=== PATIENT | female | born 1955 | race Hispanic/Latino ===

== ENCOUNTER 2022-04-06 14:47 | Inpatient (IN) | payer MEDICARE, OTHER ==
--- NOTE | 2022-04-07 09:18 | History and Physical Report ---
GP History & Physical - History of Present Illness Date of admission: 04/07/22 Date of Examination: 04/07/22 Reason for Admission: Danger to self History of Present Illness: PAST PSYCHIATRIC HISTORY: Diagnoses:Schizophrenia Suicide attempts or Self-harm behavior: Denies Prior psychiatric hospitalizations: Yes Substance Abuse history: Denies Previous psychiatric medications tried: Risperidone, Trazadone Outpatient treatment:Yes PAST MEDICAL HISTORY:HTN Family Psychiatric History: None reported or documented SOCIAL HISTORY Marital Status: Single Living Arrangements: Lives with sister Employment Status: Access to guns/weapons: Denies Education: History of Abuse:Denies Legal History: Denies REVIEW OF SYSTEMS Constitutional: Negative for weight loss ENT: Negative for stridor Respiratory: Negative for cough or hemoptysis All other systems reviewed and are negative MENTAL STATUS EXAMINATION General Appearance and Behavior: Age appropriate, wearing appropriate clothes, cooperative, polite with questioning, good eye contact Cooperation: cooperative Psychomotor Behavior: Psychomotor normal Mood: Normal Affect and affective range: congruent with stated affect Thought Process: Goal directed Thought Content: Speech: Normal volume, Regular rate and rhythm Suicidal Ideation: Denies Homicidal Ideation: Denies Hallucination: Denies Delusions:None Impulse Control: Limited Insight and Judgment: Limited Memory: Intact Attention:attentive Orientation: Alert and oriented Diagnoses: Schizophrenia Treatment Plan Patient admitted for inpatient psychiatric evaluation, medication adjustment and close monitoring The patient's behavior, mood, sleep and appetite will be closely monitored. Patient enrolled in individual and group therapeutic sessions and encouraged to attend. Patient provided with a safe and structured environment. Patient's physical health needs will be addressed by the Hospitalist. Hospitalist Consulted Labs including CBC, CMP, Lipid profile and Hemoglobin A1C levels ordered for baseline reference Social Assessment will be completed and the Counter Molder will work with patient and family to ensure a suitable and safe disposition Medication adjustment will be made as clinically indicated Continue home meds The patient agreed on the treatment plan, understood the risk, benefit, alternative treatment, potential consequence of no treatment, and gave informed consent. Estimated days: 7 Post hospital care: primary care provider, psychiatric provider Case staffed with Dr. Perla Legal Status: Voluntary Patient Problems: Legal Status: Voluntary Medications and Allergies Legal Status: Voluntary Reaction to Hospitalization: Accepting Legal Status: Voluntary Medications and Allergies Allergies Allergy/AdvReac Type Severity Reaction Status Date / Time No Known Allergies Allergy Unverified 04/07/22 03:12 Home Medications Medication Instructions Recorded Confirmed Last Taken Type hydroCHLOROthiazide [HCTZ] 25 mg PO DAILY 04/07/22 04/07/22 Unknown History lisinopriL [Lisinopril] 20 mg PO DAILY 04/07/22 04/07/22 Unknown History risperiDONE [RisperDAL] 0.5 mg PO DAILY 04/07/22 04/07/22 Unknown History risperiDONE [RisperDAL] 1 mg PO HS 04/07/22 04/07/22 Unknown History traZODone [Desyrel] 50 mg PO 04/07/22 04/07/22 Unknown History Results - Results Labs/Vitals: Last Vital Signs Temp 98.0 F 04/07/22 08:00 Pulse 68 04/07/22 08:00 Resp 04/07/22 08:00 BP 156/73 04/07/22 08:00 Pulse Ox 98 04/07/22 08:00 Physical Examination - Constitutional Vitals: Vital Signs Temp Pulse Resp BP Pulse Ox 98.0 F 68 18 156/73 98 04/07/22 08:00 04/07/22 08:00 04/07/22 08:00 04/07/22 08:00 04/07/22 08:00 Temperature -Last 24 Hours Temperature 98.0 F Temperature 97.6 F Mental Status Exam - Vital signs Last Vital Signs Temp 98.0 F 04/07/22 08:00 Pulse 68 04/07/22 08:00 Resp 18 04/07/22 08:00 BP 156/73 04/07/22 08:00 Pulse Ox 98 04/07/22 08:00 Physician Certification - Certification Statement Physician Certification Statement: This is an acknowledgement statement that KATRIN VILLEGAS is a 66 year old F who requires inpatient psychiatric admission for treatment which could reasonably be expected to improve the patient's condition for Estimated period of time patient will need to remain in the hospital: [ ] Plan for post-hospital care: [ ]
[2022-04-07] MEDS: LISINOPRIL 20 MG TAB PO SCH (09:33)
[2022-04-07] MEDS: risperiDONE 0.25 MG TAB PO SCH (09:33)
[2022-04-07] MEDS: hydroCHLOROthiazide 25 MG TAB PO SCH (09:33)
[2022-04-07] MEDS ORDERED: NON-FORMULARY EACH (Risperidone [Risperdal] 0.5 MG Tablet) PO SCH (10:00)
--- NOTE | 2022-04-07 11:26 | Consultation ---
Medications and Allergies Allergies Allergy/AdvReac Type Severity Reaction Status Date / Time No Known Allergies Allergy Unverified 04/07/22 03:12 Home Medications Medication Instructions Recorded Confirmed Last Taken Type hydroCHLOROthiazide [HCTZ] 25 mg PO DAILY 04/07/22 04/07/22 Unknown History lisinopriL [Lisinopril] 20 mg PO DAILY 04/07/22 04/07/22 Unknown History risperiDONE [RisperDAL] 0.5 mg PO DAILY 04/07/22 04/07/22 Unknown History risperiDONE [RisperDAL] 1 mg PO HS 04/07/22 04/07/22 Unknown History traZODone [Desyrel] 50 mg PO 04/07/22 04/07/22 Unknown History Active Meds: Active Medications Hydrochlorothiazide (Hydrochlorothiazide 25 Mg Tab) 25 mg PO DAILY [facility] Last Admin: 04/07/22 09:33 Dose: 25 mg Lisinopril (Lisinopril 20 Mg Tab) 20 mg PO DAILY [facility] Last Admin: 04/07/22 09:33 Dose: 20 mg Risperidone (Risperidone 1 Mg Tab) 1 mg PO [facility] Risperidone (Risperidone 0.25 Mg Tab) 0.5 mg PO DAILY [facility] Last Admin: 04/07/22 09:33 Dose: 0.5 mg Trazodone HCl (Trazodone 50 Mg Tab) 50 mg PO [facility] Exam - Constitutional Vitals: Temp Pulse Resp BP Pulse Ox 98.0 F 68 18 156/73 98 04/07/22 08:00 04/07/22 09:33 04/07/22 08:00 04/07/22 09:33 04/07/22 08:00
[2022-04-07 16:33] LABS: Basophils % (Auto) 0.6 % (0.0-1.8); Eosinophils # (Auto) 0.1 K/mm3 (0.0-0.4); Eosinophils % (Auto) 1.9 % (0.0-4.3); Hematocrit 39.2 % (30.3-42.9); Hemoglobin 13.2 gm/dl (10.1-14.3); Lymphocytes # (Auto) 2.1 K/mm3 (1.2-5.4); Lymphocytes % (Auto) 30.9 % (13.4-35.0); Mean Corpuscular HGB Conc 34 % (30-34); Mean Corpuscular Volume 93 fl (79-97); Monocytes # (Auto) 0.5 K/mm3 (0.0-0.8); Monocytes % (Auto) 7.6 % (0.0-7.3); Platelet Count 195 K/mm3 (140-440); Red Blood Count 4.22 M/mm3 (3.65-5.03); Red Cell Distribution Width 14.3 % (13.2-15.2)
[2022-04-07 16:54] LABS: Alanine Aminotransferase 13 units/L (7-56); Albumin 3.9 g/dL (3.9-5); BUN/Creatinine Ratio 19; Blood Urea Nitrogen 19 mg/dL (7-17); Calcium 9.5 mg/dL (8.4-10.2); HDL Cholesterol 43 mg/dL (40-59); Hemolysis Index 5; LDL Cholesterol,Direct 97 mg/dL (50-130)
[2022-04-07 17:20] LABS: Hepatitis B Surface Antigen Non-Reactive (Negative); Hepatitis C Virus Antibody Non-Reactive (NonReactive)
[2022-04-07] MEDS: risperiDONE 1 MG TAB PO SCH (22:04)
[2022-04-07] MEDS: traZODone 50 MG TAB PO SCH (22:04)
[2022-04-08] MEDS: hydroCHLOROthiazide 25 MG TAB PO SCH (09:36)
[2022-04-08] MEDS: LISINOPRIL 20 MG TAB PO SCH (09:36)
[2022-04-08] MEDS: risperiDONE 0.25 MG TAB PO SCH (09:37)
--- NOTE | 2022-04-08 11:56 | Progress Note ---
Subjective Date of service: 04/08/22 Subjective Comment: DATE SEEN: 04/08/2022 Patient seen today in the day room. Patient talking on the phone. Patient answers questions with another question. Patient admits to eating well and sleeping well. Per nursing staff patient has been exhibiting signs of being paranoid and thought sometimes disorganized. Patient is taking all prescribed medications and denies any SI/HI/AVH at this time. PAST PSYCHIATRIC HISTORY: Diagnoses:Schizophrenia Suicide attempts or Self-harm behavior: Denies Prior psychiatric hospitalizations: Yes Substance Abuse history: Denies Previous psychiatric medications tried: Risperidone, Trazadone Outpatient treatment:Yes PAST MEDICAL HISTORY:HTN Family Psychiatric History: None reported or documented SOCIAL HISTORY Marital Status: Single Living Arrangements: Lives with sister Employment Status: Access to guns/weapons: Denies Education: History of Abuse:Denies Legal History: Denies REVIEW OF SYSTEMS Constitutional: Negative for weight loss ENT: Negative for stridor Respiratory: Negative for cough or hemoptysis All other systems reviewed and are negative MENTAL STATUS EXAMINATION General Appearance and Behavior: Age appropriate, wearing appropriate clothes, cooperative, polite with questioning, good eye contact Cooperation: cooperative Psychomotor Behavior: Psychomotor normal Mood: Normal Affect and affective range: congruent with stated affect Thought Process: Goal directed Thought Content: Speech: Normal volume, Regular rate and rhythm Suicidal Ideation: Denies Homicidal Ideation: Denies Hallucination: Denies Delusions:None Impulse Control: Limited Insight and Judgment: Limited Memory: Intact Attention:attentive Orientation: Alert and oriented Diagnoses: Schizophrenia Treatment Plan Patient admitted for inpatient psychiatric evaluation, medication adjustment and close monitoring The patient's behavior, mood, sleep and appetite will be closely monitored. Patient enrolled in individual and group therapeutic sessions and encouraged to attend. Patient provided with a safe and structured environment. Patient's physical health needs will be addressed by the Hospitalist. Hospitalist Consulted Labs including CBC, CMP, Lipid profile and Hemoglobin A1C levels ordered for baseline reference Social Assessment will be completed and the Circular Knitter Helper will work with patient and family to ensure a suitable and safe disposition Medication adjustment will be made as clinically indicated Continue home meds The patient agreed on the treatment plan, understood the risk, benefit, alternative treatment, potential consequence of no treatment, and gave informed consent. Estimated days: 7 Post hospital care: primary care provider, psychiatric provider Case staffed with Dr. Perla Legal Status: Voluntary Patient Problems: Legal Status: Voluntary Paient seen today Medications and Allergies Allergies Allergy/AdvReac Type Severity Reaction Status Date / Time No Known Allergies Allergy Unverified 04/07/22 03:12 Home Medications Medication Instructions Recorded Confirmed Last Taken Type hydroCHLOROthiazide [HCTZ] 25 mg PO DAILY 04/07/22 04/07/22 Unknown History lisinopriL [Lisinopril] 20 mg PO DAILY 04/07/22 04/07/22 Unknown History risperiDONE [RisperDAL] 0.5 mg PO DAILY 04/07/22 04/07/22 Unknown History risperiDONE [RisperDAL] 1 mg PO HS 04/07/22 04/07/22 Unknown History traZODone [Desyrel] 50 mg PO HS 04/07/22 04/07/22 Unknown History Active Meds: Active Medications Hydrochlorothiazide (Hydrochlorothiazide 25 Mg Tab) 25 mg PO DAILY [facility] Last Admin: 04/08/22 09:36 Dose: 25 mg Lisinopril (Lisinopril 20 Mg Tab) 20 mg PO DAILY [facility] Last Admin: 04/08/22 09:36 Dose: 20 mg Risperidone (Risperidone 1 Mg Tab) 1 mg PO [facility] Last Admin: 04/07/22 22:04 Dose: 1 mg Risperidone (Risperidone 0.25 Mg Tab) 0.5 mg PO DAILY [facility] Last Admin: 04/08/22 09:37 Dose: 0.5 mg Trazodone HCl (Trazodone 50 Mg Tab) 50 mg PO [facility] Last Admin: 04/07/22 22:04 Dose: 50 mg Results - Results Labs/Vitals: Laboratory Last Values WBC 6.9 K/mm3 (4.5-11.0) 04/07/22 16:02 RBC 4.22 M/mm3 (3.65-5.03) 04/07/22 16:02 Hgb 13.2 gm/dl (10.1-14.3) 04/07/22 16:02 Hct 39.2 % (30.3-42.9) 04/07/22 16:02 MCV 93 fl (79-97) 04/07/22 16:02 MCH 31 pg (28-32) 04/07/22 16:02 MCHC 34 % (30-34) 04/07/22 16:02 RDW 14.3 % (13.2-15.2) 04/07/22 16:02 Plt Count 195 K/mm3 (140-440) 04/07/22 16:02 Lymph % (Auto) 30.9 % (13.4-35.0) 04/07/22 16:02 [place] % (Auto) 7.6 % (0.0-7.3) H 04/07/22 16:02 Eos % (Auto) 1.9 % (0.0-4.3) 04/07/22 16:02 Baso % (Auto) 0.6 % (0.0-1.8) 04/07/22 16:02 Lymph # (Auto) 2.1 K/mm3 (1.2-5.4) 04/07/22 16:02 [place] # (Auto) 0.5 K/mm3 (0.0-0.8) 04/07/22 16:02 Eos # (Auto) 0.1 K/mm3 (0.0-0.4) 04/07/22 16:02 Baso # (Auto) 0.0 K/mm3 (0.0-0.1) 04/07/22 16:02 Seg Neutrophils % 59.0 % (40.0-70.0) 04/07/22 16:02 Seg Neutrophils # 4.0 K/mm3 (1.8-7.7) 04/07/22 16:02 Sodium 141 mmol/L (137-145) 04/07/22 16:02 Potassium 4.4 mmol/L (3.6-5.0) 04/07/22 16:02 Chloride 106.5 mmol/L (98-107) 04/07/22 16:02 Carbon Dioxide 28 mmol/L (22-30) 04/07/22 16:02 Anion Gap 11 mmol/L 04/07/22 16:02 BUN 19 mg/dL (7-17) H 04/07/22 16:02 Creatinine 1.0 mg/dL (0.6-1.2) 04/07/22 16:02 Estimated GFR 56 ml/min 04/07/22 16:02 BUN/Creatinine Ratio 19 % 04/07/22 16:02 Glucose 89 mg/dL (65-100) 04/07/22 16:02 Hemoglobin A1c 5.7 % (4-6) 04/07/22 16:02 Calcium 9.5 mg/dL (8.4-10.2) 04/07/22 16:02 Total Bilirubin < 0.20 mg/dL (0.1-1.2) 04/07/22 16:02 AST 18 units/L (5-40) 04/07/22 16:02 ALT 13 units/L (7-56) 04/07/22 16:02 Alkaline Phosphatase 80 units/L (35-129) 04/07/22 16:02 Total Protein 6.2 g/dL (6.3-8.2) L 04/07/22 16:02 Albumin 3.9 g/dL (3.9-5) 04/07/22 16:02 Albumin/Globulin Ratio 1.7 % 04/07/22 16:02 Triglycerides 137 mg/dL (2-149) 04/07/22 16:02 Cholesterol 155 mg/dL (50-199) 04/07/22 16:02 LDL Cholesterol Direct 97 mg/dL (50-130) 04/07/22 16:02 HDL Cholesterol 43 mg/dL (40-59) 04/07/22 16:02 Cholesterol/HDL Ratio 3.60 % 04/07/22 16:02 TSH 2.250 mlU/mL (0.270-4.200) 04/07/22 16:02 Hepatitis A IgM Ab Non-reactive (NonReactive) 04/07/22 16:02 Hep Bs Antigen Non-reactive (Negative) 04/07/22 16:02 Hep B Core IgM Ab Non-reactive (NonReactive) 04/07/22 16:02 Hepatitis C Antibody Non-reactive (NonReactive) 04/07/22 16:02 Last Vital Signs Temp 98.0 F 04/07/22 08:00 Pulse 59 L 04/08/22 09:36 Resp 18 04/07/22 08:00 BP 120/92 04/08/22 09:36 Pulse Ox 98 04/07/22 08:00
[2022-04-08] MEDS: traZODone 50 MG TAB PO SCH (21:23)
[2022-04-08] MEDS: risperiDONE 1 MG TAB PO SCH (21:23)
[2022-04-09] MEDS: LISINOPRIL 20 MG TAB PO SCH (12:01)
[2022-04-09] MEDS: hydroCHLOROthiazide 25 MG TAB PO SCH (12:01)
[2022-04-09] MEDS: risperiDONE 0.25 MG TAB PO SCH (12:01)
--- NOTE | 2022-04-09 13:40 | Progress Note ---
Subjective Date of service: 04/09/22 Subjective Comment: Date of service: 04/09/22 Patient seen today in day room. Patient states that he is doing good. Per nursing staff, patient observed talking to himself. Case management trying to reach family member for safe discharge. Patient denies any SI/HI/AVH at this time. DATE SEEN: 04/08/2022 Patient seen today in the day room. Patient talking on the phone. Patient answers questions with another question. Patient admits to eating well and sleeping well. Per nursing staff patient has been exhibiting signs of being paranoid and thought sometimes disorganized. Patient is taking all prescribed medications and denies any SI/HI/AVH at this time. PAST PSYCHIATRIC HISTORY: Diagnoses:Schizophrenia Suicide attempts or Self-harm behavior: Denies Prior psychiatric hospitalizations: Yes Substance Abuse history: Denies Previous psychiatric medications tried: Risperidone, Trazadone Outpatient treatment:Yes PAST MEDICAL HISTORY:HTN Family Psychiatric History: None reported or documented SOCIAL HISTORY Marital Status: Single Living Arrangements: Lives with sister Employment Status: Access to guns/weapons: Denies Education: History of Abuse:Denies Legal History: Denies REVIEW OF SYSTEMS Constitutional: Negative for weight loss ENT: Negative for stridor Respiratory: Negative for cough or hemoptysis All other systems reviewed and are negative MENTAL STATUS EXAMINATION General Appearance and Behavior: Age appropriate, wearing appropriate clothes, cooperative, polite with questioning, good eye contact Cooperation: cooperative Psychomotor Behavior: Psychomotor normal Mood: Normal Affect and affective range: congruent with stated affect Thought Process: Goal directed Thought Content: Speech: Normal volume, Regular rate and rhythm Suicidal Ideation: Denies Homicidal Ideation: Denies Hallucination: Denies Delusions:None Impulse Control: Limited Insight and Judgment: Limited Memory: Intact Attention:attentive Orientation: Alert and oriented Diagnoses: Schizophrenia Treatment Plan Patient admitted for inpatient psychiatric evaluation, medication adjustment and close monitoring The patient's behavior, mood, sleep and appetite will be closely monitored. Patient enrolled in individual and group therapeutic sessions and encouraged to attend. Patient provided with a safe and structured environment. Patient's physical health needs will be addressed by the Hospitalist. Hospitalist Consulted Labs including CBC, CMP, Lipid profile and Hemoglobin A1C levels ordered for baseline reference Social Assessment will be completed and the Airfreight Loading Supervisor will work with patient and family to ensure a suitable and safe disposition Medication adjustment will be made as clinically indicated Continue home meds The patient agreed on the treatment plan, understood the risk, benefit, alternative treatment, potential consequence of no treatment, and gave informed consent. Estimated days: 7 Post hospital care: primary care provider, psychiatric provider Case staffed with Dr. Perla Legal Status: Voluntary Patient Problems: Legal Status: Voluntary Paient seen today Medications and Allergies Allergies Allergy/AdvReac Type Severity Reaction Status Date / Time No Known Allergies Allergy Unverified 04/07/22 03:12 Home Medications Medication Instructions Recorded Confirmed Last Taken Type hydroCHLOROthiazide [HCTZ] 25 mg PO DAILY 04/07/22 04/07/22 Unknown History lisinopriL [Lisinopril] 20 mg PO DAILY 04/07/22 04/07/22 Unknown History risperiDONE [RisperDAL] 0.5 mg PO DAILY 04/07/22 04/07/22 Unknown History risperiDONE [RisperDAL] 1 mg PO HS 04/07/22 04/07/22 Unknown History traZODone [Desyrel] 50 mg PO 04/07/22 04/07/22 Unknown History Active Meds: Active Medications Hydrochlorothiazide (Hydrochlorothiazide 25 Mg Tab) 25 mg PO DAILY [facility] Last Admin: 04/09/22 12:01 Dose: 25 mg Lisinopril (Lisinopril 20 Mg Tab) 20 mg PO DAILY [facility] Last Admin: 04/09/22 12:01 Dose: 20 mg Risperidone (Risperidone 1 Mg Tab) 1 mg PO [facility] Last Admin: 04/08/22 21:23 Dose: 1 mg Risperidone (Risperidone 0.25 Mg Tab) 0.5 mg PO DAILY [facility] Last Admin: 04/09/22 12:01 Dose: 0.5 mg Trazodone HCl (Trazodone 50 Mg Tab) 50 mg PO [facility] Last Admin: 04/08/22 21:23 Dose: 50 mg Results - Results Labs/Vitals: Laboratory Last Values WBC 6.9 K/mm3 (4.5-11.0) 04/07/22 16:02 RBC 4.22 M/mm3 (3.65-5.03) 04/07/22 16:02 Hgb 13.2 gm/dl (10.1-14.3) 04/07/22 16:02 Hct 39.2 % (30.3-42.9) 04/07/22 16:02 MCV 93 fl (79-97) 04/07/22 16:02 MCH 31 pg (28-32) 04/07/22 16:02 MCHC 34 % (30-34) 04/07/22 16:02 RDW 14.3 % (13.2-15.2) 04/07/22 16:02 Plt Count 195 K/mm3 (140-440) 04/07/22 16:02 Lymph % (Auto) 30.9 % (13.4-35.0) 04/07/22 16:02 [place] % (Auto) 7.6 % (0.0-7.3) H 04/07/22 16:02 Eos % (Auto) 1.9 % (0.0-4.3) 04/07/22 16:02 Baso % (Auto) 0.6 % (0.0-1.8) 04/07/22 16:02 Lymph # (Auto) 2.1 K/mm3 (1.2-5.4) 04/07/22 16:02 [place] # (Auto) 0.5 K/mm3 (0.0-0.8) 04/07/22 16:02 Eos # (Auto) 0.1 K/mm3 (0.0-0.4) 04/07/22 16:02 Baso # (Auto) 0.0 K/mm3 (0.0-0.1) 04/07/22 16:02 Seg Neutrophils % 59.0 % (40.0-70.0) 04/07/22 16:02 Seg Neutrophils # 4.0 K/mm3 (1.8-7.7) 04/07/22 16:02 Sodium 141 mmol/L (137-145) 04/07/22 16:02 Potassium 4.4 mmol/L (3.6-5.0) 04/07/22 16:02 Chloride 106.5 mmol/L (98-107) 04/07/22 16:02 Carbon Dioxide 28 mmol/L (22-30) 04/07/22 16:02 Anion Gap 11 mmol/L 04/07/22 16:02 BUN 19 mg/dL (7-17) H 04/07/22 16:02 Creatinine 1.0 mg/dL (0.6-1.2) 04/07/22 16:02 Estimated GFR 56 ml/min 04/07/22 16:02 BUN/Creatinine Ratio 19 % 04/07/22 16:02 Glucose 89 mg/dL (65-100) 04/07/22 16:02 Hemoglobin A1c 5.7 % (4-6) 04/07/22 16:02 Calcium 9.5 mg/dL (8.4-10.2) 04/07/22 16:02 Total Bilirubin < 0.20 mg/dL (0.1-1.2) 04/07/22 16:02 AST 18 units/L (5-40) 04/07/22 16:02 ALT 13 units/L (7-56) 04/07/22 16:02 Alkaline Phosphatase 80 units/L (35-129) 04/07/22 16:02 Total Protein 6.2 g/dL (6.3-8.2) L 04/07/22 16:02 Albumin 3.9 g/dL (3.9-5) 04/07/22 16:02 Albumin/Globulin Ratio 1.7 % 04/07/22 16:02 Triglycerides 137 mg/dL (2-149) 04/07/22 16:02 Cholesterol 155 mg/dL (50-199) 04/07/22 16:02 LDL Cholesterol Direct 97 mg/dL (50-130) 04/07/22 16:02 HDL Cholesterol 43 mg/dL (40-59) 04/07/22 16:02 Cholesterol/HDL Ratio 3.60 % 04/07/22 16:02 TSH 2.250 mlU/mL (0.270-4.200) 04/07/22 16:02 Hepatitis A IgM Ab Non-reactive (NonReactive) 04/07/22 16:02 Hep Bs Antigen Non-reactive (Negative) 04/07/22 16:02 Hep B Core IgM Ab Non-reactive (NonReactive) 04/07/22 16:02 Hepatitis C Antibody Non-reactive (NonReactive) 04/07/22 16:02 Last Vital Signs Temp 98.3 F 04/09/22 08:24 Pulse 75 04/09/22 12:01 Resp 18 04/09/22 08:24 BP 115/62 04/09/22 12:01 Pulse Ox 96 04/09/22 08:24
[2022-04-09] MEDS: risperiDONE 1 MG TAB PO SCH (21:06)
[2022-04-09] MEDS: traZODone 50 MG TAB PO SCH (21:06)
--- NOTE | 2022-04-10 08:15 | Progress Note ---
Assessment and Plan Assessment and plan: -- Auditory hallucination/acute psychosis; Management per psych --Hypertension; moderate control Continue current antihypertensives lisinopril and hydrochlorothiazide -- Gastroesophageal reflux disease; Protonix 20 mg p.o. daily -- DVT prophylaxis; SCDs while resting Ambulate as tolerated --Full CODE STATUS; We will closely monitor the patient and adjust the management as needed Plan of care reviewed with the patient and his nurse. Thank you for this consultation We will follow the patient along with you Call us with questions History Interval history: 66-year-old male patient was admitted [facility] on 1012 status for acute psychosis, suspicious, noncooperative was admitted to [facility] for further evaluation and management of his acute psychosis and schizophrenia hospital service was consulted for medical management and medical consult patient reports that she has history of hypertension on antihypertensives lisinopril and hydrochlorothiazide patient denies diabetes mellitus, coronary artery disease.Today patient has no new complaints Seen and examined the patient in the activity room this morning Patient feels better, no new complaints Making some changes with the beads in the thread Not in acute distress vital signs reviewed Hospitalist Physical - Constitutional Vitals: Temp Pulse Resp BP Pulse Ox 97.3 F L 72 17 149/81 97 04/10/22 06:41 04/10/22 06:41 04/10/22 06:41 04/10/22 06:41 04/10/22 06:41 General appearance: Present: no acute distress, well-nourished - EENT Eyes: Present: PERRL, EOM intact - Neck Neck: Present: supple, normal ROM - Respiratory Respiratory effort: normal Respiratory: bilateral: diminished, negative: rales, rhonchi, wheezing - Cardiovascular Rhythm: regular Heart Sounds: Present: S1 & S2 - Extremities Extremities: no ischemia, No edema - Abdominal General gastrointestinal: soft, non-tender, non-distended, normal bowel sounds - Integumentary Integumentary: Present: clear, warm - Psychiatric Psychiatric: appropriate mood/affect, cooperative - Neurologic Neurologic: moves all extremities Results - Labs CBC & Chem 7: 04/07/22 16:02 04/07/22 16:02 Labs: Laboratory Last Values WBC 6.9 K/mm3 (4.5-11.0) 04/07/22 16:02 RBC 4.22 M/mm3 (3.65-5.03) 04/07/22 16:02 Hgb 13.2 gm/dl (10.1-14.3) 04/07/22 16:02 Hct 39.2 % (30.3-42.9) 04/07/22 16:02 MCV 93 fl (79-97) 04/07/22 16:02 MCH 31 pg (28-32) 04/07/22 16:02 MCHC 34 % (30-34) 04/07/22 16:02 RDW 14.3 % (13.2-15.2) 04/07/22 16:02 Plt Count 195 K/mm3 (140-440) 04/07/22 16:02 Lymph % (Auto) 30.9 % (13.4-35.0) 04/07/22 16:02 [place] % (Auto) 7.6 % (0.0-7.3) H 04/07/22 16:02 Eos % (Auto) 1.9 % (0.0-4.3) 04/07/22 16:02 Baso % (Auto) 0.6 % (0.0-1.8) 04/07/22 16:02 Lymph # (Auto) 2.1 K/mm3 (1.2-5.4) 04/07/22 16:02 [place] # (Auto) 0.5 K/mm3 (0.0-0.8) 04/07/22 16:02 Eos # (Auto) 0.1 K/mm3 (0.0-0.4) 04/07/22 16:02 Baso # (Auto) 0.0 K/mm3 (0.0-0.1) 04/07/22 16:02 Seg Neutrophils % 59.0 % (40.0-70.0) 04/07/22 16:02 Seg Neutrophils # 4.0 K/mm3 (1.8-7.7) 04/07/22 16:02 Sodium 141 mmol/L (137-145) 04/07/22 16:02 Potassium 4.4 mmol/L (3.6-5.0) 04/07/22 16:02 Chloride 106.5 mmol/L (98-107) 04/07/22 16:02 Carbon Dioxide 28 mmol/L (22-30) 04/07/22 16:02 Anion Gap 11 mmol/L 04/07/22 16:02 BUN 19 mg/dL (7-17) H 04/07/22 16:02 Creatinine 1.0 mg/dL (0.6-1.2) 04/07/22 16:02 Estimated GFR 56 ml/min 04/07/22 16:02 BUN/Creatinine Ratio 19 % 04/07/22 16:02 Glucose 89 mg/dL (65-100) 04/07/22 16:02 Hemoglobin A1c 5.7 % (4-6) 04/07/22 16:02 Calcium 9.5 mg/dL (8.4-10.2) 04/07/22 16:02 Total Bilirubin < 0.20 mg/dL (0.1-1.2) 04/07/22 16:02 AST 18 units/L (5-40) 04/07/22 16:02 ALT 13 units/L (7-56) 04/07/22 16:02 Alkaline Phosphatase 80 units/L (35-129) 04/07/22 16:02 Total Protein 6.2 g/dL (6.3-8.2) L 04/07/22 16:02 Albumin 3.9 g/dL (3.9-5) 04/07/22 16:02 Albumin/Globulin Ratio 1.7 % 04/07/22 16:02 Triglycerides 137 mg/dL (2-149) 04/07/22 16:02 Cholesterol 155 mg/dL (50-199) 04/07/22 16:02 LDL Cholesterol Direct 97 mg/dL (50-130) 04/07/22 16:02 HDL Cholesterol 43 mg/dL (40-59) 04/07/22 16:02 Cholesterol/HDL Ratio 3.60 % 04/07/22 16:02 TSH 2.250 mlU/mL (0.270-4.200) 04/07/22 16:02 Hepatitis A IgM Ab Non-reactive (NonReactive) 04/07/22 16:02 Hep Bs Antigen Non-reactive (Negative) 04/07/22 16:02 Hep B Core IgM Ab Non-reactive (NonReactive) 04/07/22 16:02 Hepatitis C Antibody Non-reactive (NonReactive) 04/07/22 16:02 Jerez/IV: Voiding Method Toilet Active Medications - Current Medications Current Medications: Generic Name Dose Route Start Last Admin Trade Name Reinaldo PRN Reason Stop Dose Admin Hydrochlorothiazide 25 mg 04/07/22 10:00 04/09/22 12:01 Hydrochlorothiazide 25 Mg Tab PO 25 mg DAILY [facility] Administration Lisinopril 20 mg 04/07/22 10:00 04/09/22 12:01 Lisinopril 20 Mg Tab PO 20 mg DAILY [facility] Administration Risperidone 1 mg 04/07/22 22:00 04/09/22 21:06 Risperidone 1 Mg Tab PO 1 mg HS [facility] Administration Risperidone 0.5 mg 04/07/22 10:00 04/09/22 12:01 Risperidone 0.25 Mg Tab PO 0.5 mg DAILY [facility] Administration Trazodone HCl 50 mg 04/07/22 22:00 04/09/22 21:06 Trazodone 50 Mg Tab PO 50 mg HS [facility] Administration
[2022-04-10] MEDS: risperiDONE 0.25 MG TAB PO SCH (09:33)
[2022-04-10] MEDS: LISINOPRIL 20 MG TAB PO SCH (09:34)
[2022-04-10] MEDS: hydroCHLOROthiazide 25 MG TAB PO SCH (09:34)
--- NOTE | 2022-04-10 14:41 | Progress Note ---
Subjective Date of service: 04/10/22 Subjective Comment: Date of service: 04/10/22 Patient seen this morning. Patient states that he is doing well. Denies SI/HI/AVH at this time. Date of service: 04/09/22 Patient seen today in day room. Patient states that he is doing good. Per nursing staff, patient observed talking to himself. Case management trying to reach family member for safe discharge. Patient denies any SI/HI/AVH at this time. DATE SEEN: 04/08/2022 Patient seen today in the day room. Patient talking on the phone. Patient answers questions with another question. Patient admits to eating well and sleeping well. Per nursing staff patient has been exhibiting signs of being paranoid and thought sometimes disorganized. Patient is taking all prescribed medications and denies any SI/HI/AVH at this time. PAST PSYCHIATRIC HISTORY: Diagnoses:Schizophrenia Suicide attempts or Self-harm behavior: Denies Prior psychiatric hospitalizations: Yes Substance Abuse history: Denies Previous psychiatric medications tried: Risperidone, Trazadone Outpatient treatment:Yes PAST MEDICAL HISTORY:HTN Family Psychiatric History: None reported or documented SOCIAL HISTORY Marital Status: Single Living Arrangements: Lives with sister Employment Status: Access to guns/weapons: Denies Education: History of Abuse:Denies Legal History: Denies REVIEW OF SYSTEMS Constitutional: Negative for weight loss ENT: Negative for stridor Respiratory: Negative for cough or hemoptysis All other systems reviewed and are negative MENTAL STATUS EXAMINATION General Appearance and Behavior: Age appropriate, wearing appropriate clothes, cooperative, polite with questioning, good eye contact Cooperation: cooperative Psychomotor Behavior: Psychomotor normal Mood: Normal Affect and affective range: congruent with stated affect Thought Process: Goal directed Thought Content: Speech: Normal volume, Regular rate and rhythm Suicidal Ideation: Denies Homicidal Ideation: Denies Hallucination: Denies Delusions:None Impulse Control: Limited Insight and Judgment: Limited Memory: Intact Attention:attentive Orientation: Alert and oriented Diagnoses: Schizophrenia Treatment Plan Patient admitted for inpatient psychiatric evaluation, medication adjustment and close monitoring The patient's behavior, mood, sleep and appetite will be closely monitored. Patient enrolled in individual and group therapeutic sessions and encouraged to attend. Patient provided with a safe and structured environment. Patient's physical health needs will be addressed by the Hospitalist. Hospitalist Consulted Labs including CBC, CMP, Lipid profile and Hemoglobin A1C levels ordered for baseline reference Social Assessment will be completed and the Inspector Brake [employer]ining will work with patient and family to ensure a suitable and safe disposition Medication adjustment will be made as clinically indicated Continue home meds The patient agreed on the treatment plan, understood the risk, benefit, alternative treatment, potential consequence of no treatment, and gave informed consent. Estimated days: 7 Post hospital care: primary care provider, psychiatric provider Case staffed with Dr. Perla Legal Status: Voluntary Patient Problems: Legal Status: Voluntary Paient seen today Medications and Allergies Allergies Allergy/AdvReac Type Severity Reaction Status Date / Time No Known Allergies Allergy Unverified 04/07/22 03:12 Home Medications Medication Instructions Recorded Confirmed Last Taken Type hydroCHLOROthiazide [HCTZ] 25 mg PO DAILY 04/07/22 04/07/22 Unknown History lisinopriL [Lisinopril] 20 mg PO DAILY 04/07/22 04/07/22 Unknown History risperiDONE [RisperDAL] 0.5 mg PO DAILY 04/07/22 04/07/22 Unknown History risperiDONE [RisperDAL] 1 mg PO HS 04/07/22 04/07/22 Unknown History traZODone [Desyrel] 50 mg PO HS 04/07/22 04/07/22 Unknown History Active Meds: Active Medications Hydrochlorothiazide (Hydrochlorothiazide 25 Mg Tab) 25 mg PO DAILY [facility] Last Admin: 04/10/22 09:34 Dose: 25 mg Lisinopril (Lisinopril 20 Mg Tab) 20 mg PO DAILY [facility] Last Admin: 04/10/22 09:34 Dose: 20 mg Risperidone (Risperidone 1 Mg Tab) 1 mg PO [facility] Last Admin: 04/09/22 21:06 Dose: 1 mg Risperidone (Risperidone 0.25 Mg Tab) 0.5 mg PO DAILY [facility] Last Admin: 04/10/22 09:33 Dose: 0.5 mg Trazodone HCl (Trazodone 50 Mg Tab) 50 mg PO [facility] Last Admin: 04/09/22 21:06 Dose: 50 mg Results - Results Labs/Vitals: Laboratory Last Values WBC 6.9 K/mm3 (4.5-11.0) 04/07/22 16:02 RBC 4.22 M/mm3 (3.65-5.03) 04/07/22 16:02 Hgb 13.2 gm/dl (10.1-14.3) 04/07/22 16:02 Hct 39.2 % (30.3-42.9) 04/07/22 16:02 MCV 93 fl (79-97) 04/07/22 16:02 MCH 31 pg (28-32) 04/07/22 16:02 MCHC 34 % (30-34) 04/07/22 16:02 RDW 14.3 % (13.2-15.2) 04/07/22 16:02 Plt Count 195 K/mm3 (140-440) 04/07/22 16:02 Lymph % (Auto) 30.9 % (13.4-35.0) 04/07/22 16:02 [place] % (Auto) 7.6 % (0.0-7.3) H 04/07/22 16:02 Eos % (Auto) 1.9 % (0.0-4.3) 04/07/22 16:02 Baso % (Auto) 0.6 % (0.0-1.8) 04/07/22 16:02 Lymph # (Auto) 2.1 K/mm3 (1.2-5.4) 04/07/22 16:02 [place] # (Auto) 0.5 K/mm3 (0.0-0.8) 04/07/22 16:02 Eos # (Auto) 0.1 K/mm3 (0.0-0.4) 04/07/22 16:02 Baso # (Auto) 0.0 K/mm3 (0.0-0.1) 04/07/22 16:02 Seg Neutrophils % 59.0 % (40.0-70.0) 04/07/22 16:02 Seg Neutrophils # 4.0 K/mm3 (1.8-7.7) 04/07/22 16:02 Sodium 141 mmol/L (137-145) 04/07/22 16:02 Potassium 4.4 mmol/L (3.6-5.0) 04/07/22 16:02 Chloride 106.5 mmol/L (98-107) 04/07/22 16:02 Carbon Dioxide 28 mmol/L (22-30) 04/07/22 16:02 Anion Gap 11 mmol/L 04/07/22 16:02 BUN 19 mg/dL (7-17) H 04/07/22 16:02 Creatinine 1.0 mg/dL (0.6-1.2) 04/07/22 16:02 Estimated GFR 56 ml/min 04/07/22 16:02 BUN/Creatinine Ratio 19 % 04/07/22 16:02 Glucose 89 mg/dL (65-100) 04/07/22 16:02 Hemoglobin A1c 5.7 % (4-6) 04/07/22 16:02 Calcium 9.5 mg/dL (8.4-10.2) 04/07/22 16:02 Total Bilirubin < 0.20 mg/dL (0.1-1.2) 04/07/22 16:02 AST 18 units/L (5-40) 04/07/22 16:02 ALT 13 units/L (7-56) 04/07/22 16:02 Alkaline Phosphatase 80 units/L (35-129) 04/07/22 16:02 Total Protein 6.2 g/dL (6.3-8.2) L 04/07/22 16:02 Albumin 3.9 g/dL (3.9-5) 04/07/22 16:02 Albumin/Globulin Ratio 1.7 % 04/07/22 16:02 Triglycerides 137 mg/dL (2-149) 04/07/22 16:02 Cholesterol 155 mg/dL (50-199) 04/07/22 16:02 LDL Cholesterol Direct 97 mg/dL (50-130) 04/07/22 16:02 HDL Cholesterol 43 mg/dL (40-59) 04/07/22 16:02 Cholesterol/HDL Ratio 3.60 % 04/07/22 16:02 TSH 2.250 mlU/mL (0.270-4.200) 04/07/22 16:02 Hepatitis A IgM Ab Non-reactive (NonReactive) 04/07/22 16:02 Hep Bs Antigen Non-reactive (Negative) 04/07/22 16:02 Hep B Core IgM Ab Non-reactive (NonReactive) 04/07/22 16:02 Hepatitis C Antibody Non-reactive (NonReactive) 04/07/22 16:02 Last Vital Signs Temp 97.3 F L 04/10/22 06:41 Pulse 72 04/10/22 09:34 Resp 17 04/10/22 06:41 BP 149/81 04/10/22 09:34 Pulse Ox 97 04/10/22 06:41
[2022-04-10] MEDS: traZODone 50 MG TAB PO SCH (21:27)
[2022-04-10] MEDS: risperiDONE 1 MG TAB PO SCH (21:27)
[2022-04-11] MEDS: hydroCHLOROthiazide 25 MG TAB PO SCH (09:17)
[2022-04-11] MEDS: risperiDONE 0.25 MG TAB PO SCH (09:17)
[2022-04-11] MEDS: LISINOPRIL 20 MG TAB PO SCH (09:17)
--- NOTE | 2022-04-11 13:36 | Progress Note ---
Subjective Date of service: 04/11/22 Subjective Comment: Date of service: 04/11/22 Patient seen today in the day room. Denies any SI/HI/AVH. 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 Date of service: 04/10/22 Patient seen this morning. Patient states that he is doing well. Denies SI/HI/AVH at this time. Date of service: 04/09/22 Patient seen today in day room. Patient states that he is doing good. Per nursing staff, patient observed talking to himself. Case management trying to reach family member for safe discharge. Patient denies any SI/HI/AVH at this time. DATE SEEN: 04/08/2022 Patient seen today in the day room. Patient talking on the phone. Patient answers questions with another question. Patient admits to eating well and sleeping well. Per nursing staff patient has been exhibiting signs of being paranoid and thought sometimes disorganized. Patient is taking all prescribed medications and denies any SI/HI/AVH at this time. PAST PSYCHIATRIC HISTORY: Diagnoses:Schizophrenia Suicide attempts or Self-harm behavior: Denies Prior psychiatric hospitalizations: Yes Substance Abuse history: Denies Previous psychiatric medications tried: Risperidone, Trazadone Outpatient treatment:Yes PAST MEDICAL HISTORY:HTN Family Psychiatric History: None reported or documented SOCIAL HISTORY Marital Status: Single Living Arrangements: Lives with sister Employment Status: Access to guns/weapons: Denies Education: History of Abuse:Denies Legal History: Denies REVIEW OF SYSTEMS Constitutional: Negative for weight loss ENT: Negative for stridor Respiratory: Negative for cough or hemoptysis All other systems reviewed and are negative MENTAL STATUS EXAMINATION General Appearance and Behavior: Age appropriate, wearing appropriate clothes, cooperative, polite with questioning, good eye contact Cooperation: cooperative Psychomotor Behavior: Psychomotor normal Mood: Normal Affect and affective range: congruent with stated affect Thought Process: Goal directed Thought Content: Speech: Normal volume, Regular rate and rhythm Suicidal Ideation: Denies Homicidal Ideation: Denies Hallucination: Denies Delusions:None Impulse Control: Limited Insight and Judgment: Limited Memory: Intact Attention:attentive Orientation: Alert and oriented Diagnoses: Schizophrenia Treatment Plan Patient admitted for inpatient psychiatric evaluation, medication adjustment and close monitoring The patient's behavior, mood, sleep and appetite will be closely monitored. Patient enrolled in individual and group therapeutic sessions and encouraged to attend. Patient provided with a safe and structured environment. Patient's physical health needs will be addressed by the Hospitalist. Hospitalist Consulted Labs including CBC, CMP, Lipid profile and Hemoglobin A1C levels ordered for baseline reference Social Assessment will be completed and the Transfer Worker will work with patient and family to ensure a suitable and safe disposition Medication adjustment will be made as clinically indicated Continue home meds The patient agreed on the treatment plan, understood the risk, benefit, alternative treatment, potential consequence of no treatment, and gave informed consent. Estimated days: 7 Post hospital care: primary care provider, psychiatric provider Case staffed with Dr. Perla Legal Status: Voluntary Patient Problems: Legal Status: Voluntary Paient seen today Medications and Allergies Allergies Allergy/AdvReac Type Severity Reaction Status Date / Time No Known Allergies Allergy Unverified 04/07/22 03:12 Home Medications Medication Instructions Recorded Confirmed Last Taken Type hydroCHLOROthiazide [HCTZ] 25 mg PO DAILY 04/07/22 04/07/22 Unknown History lisinopriL [Lisinopril] 20 mg PO DAILY 04/07/22 04/07/22 Unknown History risperiDONE [RisperDAL] 0.5 mg PO DAILY 04/07/22 04/07/22 Unknown History risperiDONE [RisperDAL] 1 mg PO HS 04/07/22 04/07/22 Unknown History traZODone [Desyrel] 50 mg PO HS 04/07/22 04/07/22 Unknown History Active Meds: Active Medications Hydrochlorothiazide (Hydrochlorothiazide 25 Mg Tab) 25 mg PO DAILY [facility] Last Admin: 04/11/22 09:17 Dose: 25 mg Lisinopril (Lisinopril 20 Mg Tab) 20 mg PO DAILY [facility] Last Admin: 04/11/22 09:17 Dose: 20 mg Risperidone (Risperidone 1 Mg Tab) 1 mg PO [facility] Last Admin: 04/10/22 21:27 Dose: 1 mg Risperidone (Risperidone 0.25 Mg Tab) 0.5 mg PO DAILY [facility] Last Admin: 04/11/22 09:17 Dose: 0.5 mg Trazodone HCl (Trazodone 50 Mg Tab) 50 mg PO [facility] Last Admin: 04/10/22 21:27 Dose: 50 mg Results - Results Labs/Vitals: Laboratory Last Values WBC 6.9 K/mm3 (4.5-11.0) 04/07/22 16:02 RBC 4.22 M/mm3 (3.65-5.03) 04/07/22 16:02 Hgb 13.2 gm/dl (10.1-14.3) 04/07/22 16:02 Hct 39.2 % (30.3-42.9) 04/07/22 16:02 MCV 93 fl (79-97) 04/07/22 16:02 MCH 31 pg (28-32) 04/07/22 16:02 MCHC 34 % (30-34) 04/07/22 16:02 RDW 14.3 % (13.2-15.2) 04/07/22 16:02 Plt Count 195 K/mm3 (140-440) 04/07/22 16:02 Lymph % (Auto) 30.9 % (13.4-35.0) 04/07/22 16:02 [place] % (Auto) 7.6 % (0.0-7.3) H 04/07/22 16:02 Eos % (Auto) 1.9 % (0.0-4.3) 04/07/22 16:02 Baso % (Auto) 0.6 % (0.0-1.8) 04/07/22 16:02 Lymph # (Auto) 2.1 K/mm3 (1.2-5.4) 04/07/22 16:02 [place] # (Auto) 0.5 K/mm3 (0.0-0.8) 04/07/22 16:02 Eos # (Auto) 0.1 K/mm3 (0.0-0.4) 04/07/22 16:02 Baso # (Auto) 0.0 K/mm3 (0.0-0.1) 04/07/22 16:02 Seg Neutrophils % 59.0 % (40.0-70.0) 04/07/22 16:02 Seg Neutrophils # 4.0 K/mm3 (1.8-7.7) 04/07/22 16:02 Sodium 141 mmol/L (137-145) 04/07/22 16:02 Potassium 4.4 mmol/L (3.6-5.0) 04/07/22 16:02 Chloride 106.5 mmol/L (98-107) 04/07/22 16:02 Carbon Dioxide 28 mmol/L (22-30) 04/07/22 16:02 Anion Gap 11 mmol/L 04/07/22 16:02 BUN 19 mg/dL (7-17) H 04/07/22 16:02 Creatinine 1.0 mg/dL (0.6-1.2) 04/07/22 16:02 Estimated GFR 56 ml/min 04/07/22 16:02 BUN/Creatinine Ratio 19 % 04/07/22 16:02 Glucose 89 mg/dL (65-100) 04/07/22 16:02 Hemoglobin A1c 5.7 % (4-6) 04/07/22 16:02 Calcium 9.5 mg/dL (8.4-10.2) 04/07/22 16:02 Total Bilirubin < 0.20 mg/dL (0.1-1.2) 04/07/22 16:02 AST 18 units/L (5-40) 04/07/22 16:02 ALT 13 units/L (7-56) 04/07/22 16:02 Alkaline Phosphatase 80 units/L (35-129) 04/07/22 16:02 Total Protein 6.2 g/dL (6.3-8.2) L 04/07/22 16:02 Albumin 3.9 g/dL (3.9-5) 04/07/22 16:02 Albumin/Globulin Ratio 1.7 % 04/07/22 16:02 Triglycerides 137 mg/dL (2-149) 04/07/22 16:02 Cholesterol 155 mg/dL (50-199) 04/07/22 16:02 LDL Cholesterol Direct 97 mg/dL (50-130) 04/07/22 16:02 HDL Cholesterol 43 mg/dL (40-59) 04/07/22 16:02 Cholesterol/HDL Ratio 3.60 % 04/07/22 16:02 TSH 2.250 mlU/mL (0.270-4.200) 04/07/22 16:02 Hepatitis A IgM Ab Non-reactive (NonReactive) 04/07/22 16:02 Hep Bs Antigen Non-reactive (Negative) 04/07/22 16:02 Hep B Core IgM Ab Non-reactive (NonReactive) 04/07/22 16:02 Hepatitis C Antibody Non-reactive (NonReactive) 04/07/22 16:02 Last Vital Signs Temp 97.4 F L 04/11/22 08:00 Pulse 72 04/11/22 09:17 Resp 18 04/11/22 08:00 BP 135/66 04/11/22 09:17 Pulse Ox 95 04/11/22 08:00
--- NOTE | 2022-04-11 19:36 | Progress Note ---
Assessment and Plan Assessment and plan: Assessment and plan: -- Auditory hallucination/acute psychosis; Management per psych Denies any hallucinations Patient is calm and composed no agitation --Hypertension; moderate control Continue current antihypertensives lisinopril and hydrochlorothiazide -- Gastroesophageal reflux disease; Protonix 20 mg p.o. daily -- DVT prophylaxis; SCDs while resting Ambulate as tolerated --Full CODE STATUS; We will closely monitor the patient and adjust the management as needed Plan of care reviewed with the patient and his nurse. Thank you for this consultation We will follow the patient along with you Continue current management Call us with questions History Interval history: I have seen and examined the patient in the day room Patient's chart and medications reviewed no overnight events reported by nursing Patient is cheerful and very talkative Denies hallucinations, no agitation or aggression Vital signs reviewed Patient wants to know when he can go home Hospitalist Physical - Constitutional Vitals: Temp Pulse Resp BP Pulse Ox 97.4 F L 72 18 135/66 95 04/11/22 08:00 04/11/22 09:17 04/11/22 08:00 04/11/22 09:17 04/11/22 08:00 General appearance: Present: no acute distress, well-nourished - EENT Eyes: Present: PERRL, EOM intact - Neck Neck: Present: supple, normal ROM - Respiratory Respiratory effort: normal Respiratory: bilateral: diminished, negative: rales, rhonchi, wheezing - Cardiovascular Rhythm: regular Heart Sounds: Present: S1 & S2 - Extremities Extremities: no ischemia, No edema - Abdominal General gastrointestinal: soft, non-tender, non-distended, normal bowel sounds - Integumentary Integumentary: Present: clear, warm - Psychiatric Psychiatric: appropriate mood/affect, cooperative - Neurologic Neurologic: moves all extremities Results - Labs CBC & Chem 7: 04/07/22 16:02 04/07/22 16:02 Labs: Laboratory Last Values WBC 6.9 K/mm3 (4.5-11.0) 04/07/22 16:02 RBC 4.22 M/mm3 (3.65-5.03) 04/07/22 16:02 Hgb 13.2 gm/dl (10.1-14.3) 04/07/22 16:02 Hct 39.2 % (30.3-42.9) 04/07/22 16:02 MCV 93 fl (79-97) 04/07/22 16:02 MCH 31 pg (28-32) 04/07/22 16:02 MCHC 34 % (30-34) 04/07/22 16:02 RDW 14.3 % (13.2-15.2) 04/07/22 16:02 Plt Count 195 K/mm3 (140-440) 04/07/22 16:02 Lymph % (Auto) 30.9 % (13.4-35.0) 04/07/22 16:02 [place] % (Auto) 7.6 % (0.0-7.3) H 04/07/22 16:02 Eos % (Auto) 1.9 % (0.0-4.3) 04/07/22 16:02 Baso % (Auto) 0.6 % (0.0-1.8) 04/07/22 16:02 Lymph # (Auto) 2.1 K/mm3 (1.2-5.4) 04/07/22 16:02 [place] # (Auto) 0.5 K/mm3 (0.0-0.8) 04/07/22 16:02 Eos # (Auto) 0.1 K/mm3 (0.0-0.4) 04/07/22 16:02 Baso # (Auto) 0.0 K/mm3 (0.0-0.1) 04/07/22 16:02 Seg Neutrophils % 59.0 % (40.0-70.0) 04/07/22 16:02 Seg Neutrophils # 4.0 K/mm3 (1.8-7.7) 04/07/22 16:02 Sodium 141 mmol/L (137-145) 04/07/22 16:02 Potassium 4.4 mmol/L (3.6-5.0) 04/07/22 16:02 Chloride 106.5 mmol/L (98-107) 04/07/22 16:02 Carbon Dioxide 28 mmol/L (22-30) 04/07/22 16:02 Anion Gap 11 mmol/L 04/07/22 16:02 BUN 19 mg/dL (7-17) H 04/07/22 16:02 Creatinine 1.0 mg/dL (0.6-1.2) 04/07/22 16:02 Estimated GFR 56 ml/min 04/07/22 16:02 BUN/Creatinine Ratio 19 % 04/07/22 16:02 Glucose 89 mg/dL (65-100) 04/07/22 16:02 Hemoglobin A1c 5.7 % (4-6) 04/07/22 16:02 Calcium 9.5 mg/dL (8.4-10.2) 04/07/22 16:02 Total Bilirubin < 0.20 mg/dL (0.1-1.2) 04/07/22 16:02 AST 18 units/L (5-40) 04/07/22 16:02 ALT 13 units/L (7-56) 04/07/22 16:02 Alkaline Phosphatase 80 units/L (35-129) 04/07/22 16:02 Total Protein 6.2 g/dL (6.3-8.2) L 04/07/22 16:02 Albumin 3.9 g/dL (3.9-5) 04/07/22 16:02 Albumin/Globulin Ratio 1.7 % 04/07/22 16:02 Triglycerides 137 mg/dL (2-149) 04/07/22 16:02 Cholesterol 155 mg/dL (50-199) 04/07/22 16:02 LDL Cholesterol Direct 97 mg/dL (50-130) 04/07/22 16:02 HDL Cholesterol 43 mg/dL (40-59) 04/07/22 16:02 Cholesterol/HDL Ratio 3.60 % 04/07/22 16:02 TSH 2.250 mlU/mL (0.270-4.200) 04/07/22 16:02 Hepatitis A IgM Ab Non-reactive (NonReactive) 04/07/22 16:02 Hep Bs Antigen Non-reactive (Negative) 04/07/22 16:02 Hep B Core IgM Ab Non-reactive (NonReactive) 04/07/22 16:02 Hepatitis C Antibody Non-reactive (NonReactive) 04/07/22 16:02 [place]/IV: Voiding Method Toilet Active Medications - Current Medications Current Medications: Generic Name Dose Route Start Last Admin Trade Name Freq PRN Reason Stop Dose Admin Hydrochlorothiazide 25 mg 04/07/22 10:00 04/11/22 09:17 Hydrochlorothiazide 25 Mg Tab PO 25 mg DAILY CORY Administration Lisinopril 20 mg 04/07/22 10:00 04/11/22 09:17 Lisinopril 20 Mg Tab PO 20 mg DAILY CORY Administration Risperidone 1 mg 04/07/22 22:00 04/10/22 21:27 Risperidone 1 Mg Tab PO 1 mg HS CORY Administration Risperidone 0.5 mg 04/07/22 10:00 04/11/22 09:17 Risperidone 0.25 Mg Tab PO 0.5 mg DAILY CORY Administration Trazodone HCl 50 mg 04/07/22 22:00 04/10/22 21:27 Trazodone 50 Mg Tab PO 50 mg HS CORY Administration
[2022-04-11] MEDS: traZODone 50 MG TAB PO SCH (21:25)
[2022-04-11] MEDS: risperiDONE 1 MG TAB PO SCH (21:25)
[2022-04-12] MEDS: risperiDONE 0.25 MG TAB PO SCH (09:41)
[2022-04-12] MEDS: hydroCHLOROthiazide 25 MG TAB PO SCH (09:52)
[2022-04-12] MEDS: LISINOPRIL 20 MG TAB PO SCH (09:52)
--- NOTE | 2022-04-12 11:57 | Progress Note ---
Subjective Date of service: 04/12/22 Subjective Comment: Date of service: 04/12/22 Patient seen today on the dayroom.Patient denies any SI/HI/AVH at this time. 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 Date of service: 04/11/22 Patient seen today in the day room. Denies any SI/HI/AVH. 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 Date of service: 04/10/22 Patient seen this morning. Patient states that he is doing well. Denies SI/HI/AVH at this time. Date of service: 04/09/22 Patient seen today in day room. Patient states that he is doing good. Per nursing staff, patient observed talking to himself. Case management trying to reach family member for safe discharge. Patient denies any SI/HI/AVH at this time. DATE SEEN: 04/08/2022 Patient seen today in the day room. Patient talking on the phone. Patient answers questions with another question. Patient admits to eating well and sleeping well. Per nursing staff patient has been exhibiting signs of being paranoid and thought sometimes disorganized. Patient is taking all prescribed medications and denies any SI/HI/AVH at this time. PAST PSYCHIATRIC HISTORY: Diagnoses:Schizophrenia Suicide attempts or Self-harm behavior: Denies Prior psychiatric hospitalizations: Yes Substance Abuse history: Denies Previous psychiatric medications tried: Risperidone, Trazadone Outpatient treatment:Yes PAST MEDICAL HISTORY:HTN Family Psychiatric History: None reported or documented SOCIAL HISTORY Marital Status: Single Living Arrangements: Lives with sister Employment Status: Access to guns/weapons: Denies Education: History of Abuse:Denies Legal History: Denies REVIEW OF SYSTEMS Constitutional: Negative for weight loss ENT: Negative for stridor Respiratory: Negative for cough or hemoptysis All other systems reviewed and are negative MENTAL STATUS EXAMINATION General Appearance and Behavior: Age appropriate, wearing appropriate clothes, cooperative, polite with questioning, good eye contact Cooperation: cooperative Psychomotor Behavior: Psychomotor normal Mood: Normal Affect and affective range: congruent with stated affect Thought Process: Goal directed Thought Content: Speech: Normal volume, Regular rate and rhythm Suicidal Ideation: Denies Homicidal Ideation: Denies Hallucination: Denies Delusions:None Impulse Control: Limited Insight and Judgment: Limited Memory: Intact Attention:attentive Orientation: Alert and oriented Diagnoses: Schizophrenia Treatment Plan Patient admitted for inpatient psychiatric evaluation, medication adjustment and close monitoring The patient's behavior, mood, sleep and appetite will be closely monitored. Patient enrolled in individual and group therapeutic sessions and encouraged to attend. Patient provided with a safe and structured environment. Patient's physical health needs will be addressed by the Hospitalist. Hospitalist Consulted Labs including CBC, CMP, Lipid profile and Hemoglobin A1C levels ordered for baseline reference Social Assessment will be completed and the Airline Flight Attendant will work with patient and family to ensure a suitable and safe disposition Medication adjustment will be made as clinically indicated Continue home meds The patient agreed on the treatment plan, understood the risk, benefit, alternative treatment, potential consequence of no treatment, and gave informed consent. Estimated days: 7 Post hospital care: primary care provider, psychiatric provider Case staffed with Dr. Perla Legal Status: Voluntary Patient Problems: Legal Status: Voluntary Paient seen today Medications and Allergies Allergies Allergy/AdvReac Type Severity Reaction Status Date / Time No Known Allergies Allergy Unverified 04/07/22 03:12 Home Medications Medication Instructions Recorded Confirmed Last Taken Type hydroCHLOROthiazide [HCTZ] 25 mg PO DAILY 04/07/22 04/07/22 Unknown History lisinopriL [Lisinopril] 20 mg PO DAILY 04/07/22 04/07/22 Unknown History risperiDONE [RisperDAL] 0.5 mg PO DAILY 04/07/22 04/07/22 Unknown History risperiDONE [RisperDAL] 1 mg PO HS 04/07/22 04/07/22 Unknown History traZODone [Desyrel] 50 mg PO HS 04/07/22 04/07/22 Unknown History Active Meds: Active Medications Hydrochlorothiazide (Hydrochlorothiazide 25 Mg Tab) 25 mg PO DAILY [facility] Last Admin: 04/12/22 09:52 Dose: Not Given Lisinopril (Lisinopril 20 Mg Tab) 20 mg PO DAILY [facility] Last Admin: 04/12/22 09:52 Dose: Not Given Risperidone (Risperidone 1 Mg Tab) 1 mg PO [facility] Last Admin: 04/11/22 21:25 Dose: 1 mg Risperidone (Risperidone 0.25 Mg Tab) 0.5 mg PO DAILY [facility] Last Admin: 04/12/22 09:41 Dose: 0.5 mg Trazodone HCl (Trazodone 50 Mg Tab) 50 mg PO [facility] Last Admin: 04/11/22 21:25 Dose: 50 mg Results - Results Labs/Vitals: Laboratory Last Values WBC 6.9 K/mm3 (4.5-11.0) 04/07/22 16:02 RBC 4.22 M/mm3 (3.65-5.03) 04/07/22 16:02 Hgb 13.2 gm/dl (10.1-14.3) 04/07/22 16:02 Hct 39.2 % (30.3-42.9) 04/07/22 16:02 MCV 93 fl (79-97) 04/07/22 16:02 MCH 31 pg (28-32) 04/07/22 16:02 MCHC 34 % (30-34) 04/07/22 16:02 RDW 14.3 % (13.2-15.2) 04/07/22 16:02 Plt Count 195 K/mm3 (140-440) 04/07/22 16:02 Lymph % (Auto) 30.9 % (13.4-35.0) 04/07/22 16:02 [place] % (Auto) 7.6 % (0.0-7.3) H 04/07/22 16:02 Eos % (Auto) 1.9 % (0.0-4.3) 04/07/22 16:02 Baso % (Auto) 0.6 % (0.0-1.8) 04/07/22 16:02 Lymph # (Auto) 2.1 K/mm3 (1.2-5.4) 04/07/22 16:02 [place] # (Auto) 0.5 K/mm3 (0.0-0.8) 04/07/22 16:02 Eos # (Auto) 0.1 K/mm3 (0.0-0.4) 04/07/22 16:02 Baso # (Auto) 0.0 K/mm3 (0.0-0.1) 04/07/22 16:02 Seg Neutrophils % 59.0 % (40.0-70.0) 04/07/22 16:02 Seg Neutrophils # 4.0 K/mm3 (1.8-7.7) 04/07/22 16:02 Sodium 141 mmol/L (137-145) 04/07/22 16:02 Potassium 4.4 mmol/L (3.6-5.0) 04/07/22 16:02 Chloride 106.5 mmol/L (98-107) 04/07/22 16:02 Carbon Dioxide 28 mmol/L (22-30) 04/07/22 16:02 Anion Gap 11 mmol/L 04/07/22 16:02 BUN 19 mg/dL (7-17) H 04/07/22 16:02 Creatinine 1.0 mg/dL (0.6-1.2) 04/07/22 16:02 Estimated GFR 56 ml/min 04/07/22 16:02 BUN/Creatinine Ratio 19 % 04/07/22 16:02 Glucose 89 mg/dL (65-100) 04/07/22 16:02 Hemoglobin A1c 5.7 % (4-6) 04/07/22 16:02 Calcium 9.5 mg/dL (8.4-10.2) 04/07/22 16:02 Total Bilirubin < 0.20 mg/dL (0.1-1.2) 04/07/22 16:02 AST 18 units/L (5-40) 04/07/22 16:02 ALT 13 units/L (7-56) 04/07/22 16:02 Alkaline Phosphatase 80 units/L (35-129) 04/07/22 16:02 Total Protein 6.2 g/dL (6.3-8.2) L 04/07/22 16:02 Albumin 3.9 g/dL (3.9-5) 04/07/22 16:02 Albumin/Globulin Ratio 1.7 % 04/07/22 16:02 Triglycerides 137 mg/dL (2-149) 04/07/22 16:02 Cholesterol 155 mg/dL (50-199) 04/07/22 16:02 LDL Cholesterol Direct 97 mg/dL (50-130) 04/07/22 16:02 HDL Cholesterol 43 mg/dL (40-59) 04/07/22 16:02 Cholesterol/HDL Ratio 3.60 % 04/07/22 16:02 TSH 2.250 mlU/mL (0.270-4.200) 04/07/22 16:02 Hepatitis A IgM Ab Non-reactive (NonReactive) 04/07/22 16:02 Hep Bs Antigen Non-reactive (Negative) 04/07/22 16:02 Hep B Core IgM Ab Non-reactive (NonReactive) 04/07/22 16:02 Hepatitis C Antibody Non-reactive (NonReactive) 04/07/22 16:02 Last Vital Signs Temp 98.0 F 04/11/22 19:22 Pulse 73 04/12/22 09:52 Resp 18 04/11/22 19:22 BP 104/64 04/12/22 09:52 Pulse Ox 95 04/11/22 08:00
--- NOTE | 2022-04-12 19:38 | Progress Note ---
Assessment and Plan Assessment and plan: -- Auditory hallucination/acute psychosis; Management per psych Patient denies any hallucinations Patient is calm and cheerful today --Hypertension; moderate control Continue current antihypertensives lisinopril and hydrochlorothiazide -- Gastroesophageal reflux disease; Protonix 20 mg p.o. daily -- DVT prophylaxis; SCDs while resting Ambulate as tolerated --Full CODE STATUS; We will closely monitor the patient and adjust the management as needed Plan of care reviewed with the patient and his nurse. We will follow the patient along with you Continue current management Call us with questions History Interval history: I have seen and examined the patient in the day room Patient is more cheerful today and talkative Patient has no new complaints anxious to go home No new events reported by the nursing staff Vital signs noted Hospitalist Physical - Constitutional Vitals: Temp Pulse Resp BP Pulse Ox 98.0 F 73 18 104/64 95 04/11/22 19:22 04/12/22 09:52 04/11/22 19:22 04/12/22 09:52 04/11/22 08:00 General appearance: Present: no acute distress, well-nourished - EENT Eyes: Present: PERRL, EOM intact - Neck Neck: Present: supple, normal ROM - Respiratory Respiratory effort: normal Respiratory: bilateral: diminished, negative: rales, rhonchi, wheezing - Cardiovascular Rhythm: regular Heart Sounds: Present: S1 & S2 - Extremities Extremities: no ischemia, No edema - Abdominal General gastrointestinal: soft, non-tender, non-distended, normal bowel sounds - Integumentary Integumentary: Present: clear, warm - Psychiatric Psychiatric: appropriate mood/affect, cooperative - Neurologic Neurologic: moves all extremities Results - Labs CBC & Chem 7: 04/07/22 16:02 04/07/22 16:02 Labs: Laboratory Last Values WBC 6.9 K/mm3 (4.5-11.0) 04/07/22 16:02 RBC 4.22 M/mm3 (3.65-5.03) 04/07/22 16:02 Hgb 13.2 gm/dl (10.1-14.3) 04/07/22 16:02 Hct 39.2 % (30.3-42.9) 04/07/22 16:02 MCV 93 fl (79-97) 04/07/22 16:02 MCH 31 pg (28-32) 04/07/22 16:02 MCHC 34 % (30-34) 04/07/22 16:02 RDW 14.3 % (13.2-15.2) 04/07/22 16:02 Plt Count 195 K/mm3 (140-440) 04/07/22 16:02 Lymph % (Auto) 30.9 % (13.4-35.0) 04/07/22 16:02 [place] % (Auto) 7.6 % (0.0-7.3) H 04/07/22 16:02 Eos % (Auto) 1.9 % (0.0-4.3) 04/07/22 16:02 Baso % (Auto) 0.6 % (0.0-1.8) 04/07/22 16:02 Lymph # (Auto) 2.1 K/mm3 (1.2-5.4) 04/07/22 16:02 [place] # (Auto) 0.5 K/mm3 (0.0-0.8) 04/07/22 16:02 Eos # (Auto) 0.1 K/mm3 (0.0-0.4) 04/07/22 16:02 Baso # (Auto) 0.0 K/mm3 (0.0-0.1) 04/07/22 16:02 Seg Neutrophils % 59.0 % (40.0-70.0) 04/07/22 16:02 Seg Neutrophils # 4.0 K/mm3 (1.8-7.7) 04/07/22 16:02 Sodium 141 mmol/L (137-145) 04/07/22 16:02 Potassium 4.4 mmol/L (3.6-5.0) 04/07/22 16:02 Chloride 106.5 mmol/L (98-107) 04/07/22 16:02 Carbon Dioxide 28 mmol/L (22-30) 04/07/22 16:02 Anion Gap 11 mmol/L 04/07/22 16:02 BUN 19 mg/dL (7-17) H 04/07/22 16:02 Creatinine 1.0 mg/dL (0.6-1.2) 04/07/22 16:02 Estimated GFR 56 ml/min 04/07/22 16:02 BUN/Creatinine Ratio 19 % 07/23/22 16:02 Glucose 89 mg/dL (65-100) 04/07/22 16:02 Hemoglobin A1c 5.7 % (4-6) 04/07/22 16:02 Calcium 9.5 mg/dL (8.4-10.2) 04/07/22 16:02 Total Bilirubin < 0.20 mg/dL (0.1-1.2) 04/07/22 16:02 AST 18 units/L (5-40) 04/07/22 16:02 ALT 13 units/L (7-56) 04/07/22 16:02 Alkaline Phosphatase 80 units/L (35-129) 04/07/22 16:02 Total Protein 6.2 g/dL (6.3-8.2) L 04/07/22 16:02 Albumin 3.9 g/dL (3.9-5) 04/07/22 16:02 Albumin/Globulin Ratio 1.7 % 04/07/22 16:02 Triglycerides 137 mg/dL (2-149) 04/07/22 16:02 Cholesterol 155 mg/dL (50-199) 04/07/22 16:02 LDL Cholesterol Direct 97 mg/dL (50-130) 04/07/22 16:02 HDL Cholesterol 43 mg/dL (40-59) 04/07/22 16:02 Cholesterol/HDL Ratio 3.60 % 04/07/22 16:02 TSH 2.250 mlU/mL (0.270-4.200) 04/07/22 16:02 Hepatitis A IgM Ab Non-reactive (NonReactive) 04/07/22 16:02 Hep Bs Antigen Non-reactive (Negative) 04/07/22 16:02 Hep B Core IgM Ab Non-reactive (NonReactive) 04/07/22 16:02 Hepatitis C Antibody Non-reactive (NonReactive) 04/07/22 16:02 [place]/IV: Voiding Method Toilet Active Medications - Current Medications Current Medications: Generic Name Dose Route Start Last Admin Trade Name Freq PRN Reason Stop Dose Admin Hydrochlorothiazide 25 mg 04/07/22 10:00 04/12/22 09:52 Hydrochlorothiazide 25 Mg Tab PO Not Given DAILY [facility] Lisinopril 20 mg 04/07/22 10:00 04/12/22 09:52 Lisinopril 20 Mg Tab PO Not Given DAILY [facility] Risperidone 1 mg 04/07/22 22:00 04/11/22 21:25 Risperidone 1 Mg Tab PO 1 mg HS [facility] Administration Risperidone 0.5 mg 04/07/22 10:00 04/12/22 09:41 Risperidone 0.25 Mg Tab PO 0.5 mg DAILY [facility] Administration Trazodone HCl 50 mg 04/07/22 22:00 04/11/22 21:25 Trazodone 50 Mg Tab PO 50 mg HS [facility] Administration
[2022-04-12] MEDS: traZODone 50 MG TAB PO SCH (21:24)
[2022-04-12] MEDS: risperiDONE 1 MG TAB PO SCH (21:24)
[2022-04-13 01:56] VITALS: BP 122/62
[2022-04-13] MEDS: hydroCHLOROthiazide 25 MG TAB PO SCH (10:30)
[2022-04-13] MEDS: risperiDONE 0.25 MG TAB PO SCH (10:30)
--- NOTE | 2022-04-13 10:54 | Discharge Summary ---
Providers - Providers Date of Admission: 04/07/22 04:15 Date of discharge: 04/13/22 Attending physician: SUSIE BELL MD 04/07/22 03:12 Consult to Physician [CONS] Routine Comment: Consulting Provider: ROSA TEJADA Physician Instructions: Reason For Exam: management of medical problems Primary care physician: FLIGHT SOFTWARE TEST ENGINEER Hospitalization Reason for admission: hallucinations Admitting Diagnosis: F20.9 - SCHIZOPHRENIA, UNSPECIFIED Hospital course: The patient was provided inpatient psychiatric treatment with safe and supportive environment, group/individual therapy, psychiatric medication, medication adjustment, adverse effect monitor, medical evaluation, medical treatment, social service assessment, social support meeting, placement assessment and psycho-education. The patients mood, cognition, behavior, motivation, compliance to treatment and appreciation on family/social support are improved and stabilized. At the time of discharge, the patient had no suicidal ideas, no homicidal ideas, no aggressive thoughts, no endangering behavior and no debilitating adverse effects. The patient agreed on the treatment plan, understood the risk, benefit, alternative treatment, potential consequence of no treatment, and gave informed consent. Disposition: 01 HOME / SELF CARE / HOMELESS Time spent for discharge: 35 Allergies/Adverse Reactions: Allergies No Known Allergies Allergy (Unverified 04/07/22 03:12) Vital Signs: Last Vital Signs Temp 97.6 F 04/13/22 01:55 Pulse 70 04/13/22 01:55 Resp 16 04/13/22 01:55 BP 122/62 04/13/22 01:55 Pulse Ox 97 04/13/22 01:55 Last Lab: Laboratory Last Values WBC 6.9 K/mm3 (4.5-11.0) 04/07/22 16:02 RBC 4.22 M/mm3 (3.65-5.03) 04/07/22 16:02 Hgb 13.2 gm/dl (10.1-14.3) 04/07/22 16:02 Hct 39.2 % (30.3-42.9) 04/07/22 16:02 MCV 93 fl (79-97) 04/07/22 16:02 MCH 31 pg (28-32) 04/07/22 16:02 MCHC 34 % (30-34) 04/07/22 16:02 RDW 14.3 % (13.2-15.2) 04/07/22 16:02 Plt Count 195 K/mm3 (140-440) 04/07/22 16:02 Lymph % (Auto) 30.9 % (13.4-35.0) 04/07/22 16:02 [place] % (Auto) 7.6 % (0.0-7.3) H 04/07/22 16:02 Eos % (Auto) 1.9 % (0.0-4.3) 04/07/22 16:02 Baso % (Auto) 0.6 % (0.0-1.8) 04/07/22 16:02 Lymph # (Auto) 2.1 K/mm3 (1.2-5.4) 04/07/22 16:02 [place] # (Auto) 0.5 K/mm3 (0.0-0.8) 04/07/22 16:02 Eos # (Auto) 0.1 K/mm3 (0.0-0.4) 04/07/22 16:02 Baso # (Auto) 0.0 K/mm3 (0.0-0.1) 04/07/22 16:02 Seg Neutrophils % 59.0 % (40.0-70.0) 04/07/22 16:02 Seg Neutrophils # 4.0 K/mm3 (1.8-7.7) 04/07/22 16:02 Sodium 141 mmol/L (137-145) 04/07/22 16:02 Potassium 4.4 mmol/L (3.6-5.0) 04/07/22 16:02 Chloride 106.5 mmol/L (98-107) 04/07/22 16:02 Carbon Dioxide 28 mmol/L (22-30) 04/07/22 16:02 Anion Gap 11 mmol/L 04/07/22 16:02 BUN 19 mg/dL (7-17) H 04/07/22 16:02 Creatinine 1.0 mg/dL (0.6-1.2) 04/07/22 16:02 Estimated GFR 56 ml/min 04/07/22 16:02 BUN/Creatinine Ratio 19 % 04/07/22 16:02 Glucose 89 mg/dL (65-100) 04/07/22 16:02 Hemoglobin A1c 5.7 % (4-6) 04/07/22 16:02 Calcium 9.5 mg/dL (8.4-10.2) 04/07/22 16:02 Total Bilirubin < 0.20 mg/dL (0.1-1.2) 04/07/22 16:02 AST 18 units/L (5-40) 04/07/22 16:02 ALT 13 units/L (7-56) 04/07/22 16:02 Alkaline Phosphatase 80 units/L (35-129) 04/07/22 16:02 Total Protein 6.2 g/dL (6.3-8.2) L 04/07/22 16:02 Albumin 3.9 g/dL (3.9-5) 04/07/22 16:02 Albumin/Globulin Ratio 1.7 % 04/07/22 16:02 Triglycerides 137 mg/dL (2-149) 04/07/22 16:02 Cholesterol 155 mg/dL (50-199) 04/07/22 16:02 LDL Cholesterol Direct 97 mg/dL (50-130) 04/07/22 16:02 HDL Cholesterol 43 mg/dL (40-59) 04/07/22 16:02 Cholesterol/HDL Ratio 3.60 % 04/07/22 16:02 TSH 2.250 mlU/mL (0.270-4.200) 04/07/22 16:02 Hepatitis A IgM Ab Non-reactive (NonReactive) 04/07/22 16:02 Hep Bs Antigen Non-reactive (Negative) 04/07/22 16:02 Hep B Core IgM Ab Non-reactive (NonReactive) 04/07/22 16:02 Hepatitis C Antibody Non-reactive (NonReactive) 04/07/22 16:02 Core Measure Documentation - Palliative Care Palliative Care/ Comfort Measures: Not Applicable - Core Measures Any of the following diagnoses?: none Exam - Constitutional Vitals: Temp Pulse Resp BP Pulse Ox 97.6 F 70 16 122/62 97 04/13/22 01:55 04/13/22 01:55 04/13/22 01:55 04/13/22 01:55 04/13/22 01:55 General appearance: Present: no acute distress - EENT Eyes: Present: EOM intact ENT: hearing intact, clear oral mucosa - Neck Neck: Present: supple, normal ROM - Respiratory Respiratory effort: normal Plan Activity: advance as tolerated Weight Bearing Status: Weight Bear as Tolerated Care Plan Goals: Maintain good and stable mental health Plan of Treatment: The patient should be compliant with medications, not to use drugs, and not to drink alcohol. The patient understands that if suicidal ideas, homicidal ideas or any endangering feeling arise, the patient should seek assistance including, but not limited to crisis hotline, and emergency room. Assessment: Schizophrenia Follow up with: PRIMARY CARE, [Primary Care Provider] - 7 Days Prescriptions: traZODone [Desyrel] 50 mg PO HS #30 risperiDONE [RisperDAL] 0.5 mg PO DAILY #60 tablet risperiDONE [RisperDAL] 1 mg PO HS #30
--- NOTE | 2022-04-13 20:17 | Progress Note ---
Assessment and Plan Assessment and plan: -- Auditory hallucination/acute psychosis; Management per psych Patient denies any hallucinations Patient is calm and cheerful today --Hypertension; moderate control Continue current antihypertensives lisinopril and hydrochlorothiazide -- Gastroesophageal reflux disease; Protonix 20 mg p.o. daily -- DVT prophylaxis; SCDs while resting Ambulate as tolerated --Full CODE STATUS; We will closely monitor the patient and adjust the management as needed Plan of care reviewed with the patient and his nurse. We will follow the patient along with you Continue current management Call us with questions Patient is medically stable for discharge Needs to see primary care physician for his medical needs Stable at discharge Thank you for this consultation History Interval history: I have seen and examined the patient in day room today Patient is excited that he is being discharged Patient is anxious to go soon No new events reported by the nursing Vital signs stable Hospitalist Physical - Constitutional Vitals: Temp Pulse Resp BP Pulse Ox 97.6 F 70 16 122/62 97 04/13/22 01:55 04/13/22 01:55 04/13/22 01:55 04/13/22 01:55 04/13/22 01:55 General appearance: Present: no acute distress, well-nourished - EENT Eyes: Present: PERRL, EOM intact - Neck Neck: Present: supple, normal ROM - Respiratory Respiratory effort: normal Respiratory: bilateral: diminished, negative: rales, rhonchi, wheezing - Cardiovascular Rhythm: regular Heart Sounds: Present: S1 & S2 - Extremities Extremities: no ischemia, No edema - Abdominal General gastrointestinal: soft, non-tender, non-distended, normal bowel sounds - Integumentary Integumentary: Present: clear, warm - Psychiatric Psychiatric: appropriate mood/affect, cooperative - Neurologic Neurologic: CNII-XII intact, moves all extremities Results - Labs CBC & Chem 7: 04/07/22 16:02 04/07/22 16:02 Labs: Laboratory Last Values WBC 6.9 K/mm3 (4.5-11.0) 04/07/22 16:02 RBC 4.22 M/mm3 (3.65-5.03) 04/07/22 16:02 Hgb 13.2 gm/dl (10.1-14.3) 04/07/22 16:02 Hct 39.2 % (30.3-42.9) 04/07/22 16:02 MCV 93 fl (79-97) 04/07/22 16:02 MCH 31 pg (28-32) 04/07/22 16:02 MCHC 34 % (30-34) 04/07/22 16:02 RDW 14.3 % (13.2-15.2) 04/07/22 16:02 Plt Count 195 K/mm3 (140-440) 04/07/22 16:02 Lymph % (Auto) 30.9 % (13.4-35.0) 04/07/22 16:02 [place] % (Auto) 7.6 % (0.0-7.3) H 04/07/22 16:02 Eos % (Auto) 1.9 % (0.0-4.3) 04/07/22 16:02 Baso % (Auto) 0.6 % (0.0-1.8) 04/07/22 16:02 Lymph # (Auto) 2.1 K/mm3 (1.2-5.4) 04/07/22 16:02 [place] # (Auto) 0.5 K/mm3 (0.0-0.8) 04/07/22 16:02 Eos # (Auto) 0.1 K/mm3 (0.0-0.4) 04/07/22 16:02 Baso # (Auto) 0.0 K/mm3 (0.0-0.1) 04/07/22 16:02 Seg Neutrophils % 59.0 % (40.0-70.0) 04/07/22 16:02 Seg Neutrophils # 4.0 K/mm3 (1.8-7.7) 04/07/22 16:02 Sodium 141 mmol/L (137-145) 04/07/22 16:02 Potassium 4.4 mmol/L (3.6-5.0) 04/07/22 16:02 Chloride 106.5 mmol/L (98-107) 04/07/22 16:02 Carbon Dioxide 28 mmol/L (22-30) 04/07/22 16:02 Anion Gap 11 mmol/L 04/07/22 16:02 BUN 19 mg/dL (7-17) H 04/07/22 16:02 Creatinine 1.0 mg/dL (0.6-1.2) 04/07/22 16:02 Estimated GFR 56 ml/min 04/07/22 16:02 BUN/Creatinine Ratio 19 % 04/07/22 16:02 Glucose 89 mg/dL (65-100) 04/07/22 16:02 Hemoglobin A1c 5.7 % (4-6) 04/07/22 16:02 Calcium 9.5 mg/dL (8.4-10.2) 04/07/22 16:02 Total Bilirubin < 0.20 mg/dL (0.1-1.2) 04/07/22 16:02 AST 18 units/L (5-40) 04/07/22 16:02 ALT 13 units/L (7-56) 04/07/22 16:02 Alkaline Phosphatase 80 units/L (35-129) 04/07/22 16:02 Total Protein 6.2 g/dL (6.3-8.2) L 04/07/22 16:02 Albumin 3.9 g/dL (3.9-5) 04/07/22 16:02 Albumin/Globulin Ratio 1.7 % 04/07/22 16:02 Triglycerides 137 mg/dL (2-149) 04/07/22 16:02 Cholesterol 155 mg/dL (50-199) 04/07/22 16:02 LDL Cholesterol Direct 97 mg/dL (50-130) 04/07/22 16:02 HDL Cholesterol 43 mg/dL (40-59) 04/07/22 16:02 Cholesterol/HDL Ratio 3.60 % 04/07/22 16:02 TSH 2.250 mlU/mL (0.270-4.200) 04/07/22 16:02 Hepatitis A IgM Ab Non-reactive (NonReactive) 04/07/22 16:02 Hep Bs Antigen Non-reactive (Negative) 04/07/22 16:02 Hep B Core IgM Ab Non-reactive (NonReactive) 04/07/22 16:02 Hepatitis C Antibody Non-reactive (NonReactive) 04/07/22 16:02 Jerez/IV: Voiding Method Toilet Active Medications - Current Medications Current Medications: Generic Name Dose Route Start Last Admin Trade Name Freq PRN Reason Stop Dose Admin Hydrochlorothiazide 25 mg 04/07/22 10:00 04/13/22 10:30 Hydrochlorothiazide 25 Mg Tab PO 25 mg DAILY [facility]ORY Administration Lisinopril 20 mg 04/07/22 10:00 04/12/22 09:52 Lisinopril 20 Mg Tab PO Not Given DAILY CORY Risperidone 1 mg 04/07/22 22:00 04/12/22 21:24 Risperidone 1 Mg Tab PO 1 mg HS CORY Administration Risperidone 0.5 mg 04/07/22 10:00 04/13/22 10:30 Risperidone 0.25 Mg Tab PO 0.5 mg DAILY CORY Administration Trazodone HCl 50 mg 04/07/22 22:00 04/12/22 21:24 Trazodone 50 Mg Tab PO 50 mg HS CORY Administration Nutrition/Malnutrition Assess - Dietary Evaluation Nutrition/Malnutrition Findings: Nutrition Notes Start: 04/13/22 16:16 Freq: Status: Active Protocol: Document 04/13/22 16:16 KERWIN (Rec: 04/13/22 16:26 KERWIN [id number]) Nutrition Notes Need for Assessment generated from: LOS Initial or Follow up Assessment Other Pertinent Diagnosis Unspecified Schizophrenia. Current Diet Regular Diet (since B 04/07). Labs/Tests 04/13: BUN 19. Pertinent Medications 728: Nutritionally unremarkable. 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 Weight Status Overweight Subjective/Other Information RD consult for LOS assessment. Pt's PO intake of meals has been Good (100%), according to ADL notes. Pt is on Room Air, O2 saturation @ 95%, according to Vital Signs notes. Percent of energy/protein needs met: Prescribed Regular Diet provides for energy/protein needs (2,289 Kcal/89 g) during LOS. Burn Absent Trauma Absent GI Symptoms None Food Allergy No Skin Integrity/Comment Assessment WNL. 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 No Is Patient Ambulatory and/or Out of Bed Yes REE-([place]away-St. Jeor-ambulatory/OOB) [ 1851.694 NUTR.MSJOOB] Kcal/Kg value to use for calculation 24 Approximate Energy Requirements Using 1944 kcal/Kg Calculation Used for Recommendations Kcal/kg Additional Notes Protein: 0.8-1 g/Kg ABW; 65-81 g/day. Fluids: 1 ml/Kcal, or as per MD. Nutrition Intervention Change Diet Order: Continue Regular Diet. Follow-Up By: 04/20/22 Additional Comments Continue monitoring food tolerance, %PO intake of meals , and BM.
== END 2022-04-13 19:14 | disposition home or self-care (01) | DRG 885 ==
LOC: 3A 14:47 → UNDOADMIN 14:47 → 5A 04-07 04:15
PROVIDERS: ADMIT Psychiatry & Neurology Psychiatry; ATTEND Psychiatry & Neurology Psychiatry
DX: F20.9 Schizophrenia, unspecified (principal); I10 Essential (primary) hypertension; K21.9 Gastro-esophageal reflux disease without esophagitis; Z79.899 Other long term (current) drug therapy
CPT/HCPCS: 36415; 80053; 80061; 80074; 83036; 84443; 85025; G0378